=== PATIENT | male | born 1960 | race American Indian/Alaskan Native ===

== ENCOUNTER 2022-03-22 11:37 | Emergency (ER) | payer MEDICAID, OTHER ==
[~2022-03-22] VITALS: Ht 175.3 cm; Wt 108.9 kg
[2022-03-22] MEDS ORDERED: SPIRONOLACTONE25 MG PO (12:01)
[2022-03-22] MEDS ORDERED: ZESTRIL20 MG PO (12:02)
[2022-03-22] MEDS ORDERED: NEURONTIN400 MG PO (13:02)
[2022-03-22] MEDS ORDERED: LIDODERM1 EACH TOP (13:02)
[2022-03-22] MEDS ORDERED: NAPROSYN500 MG PO (13:02)
== END 2022-03-22 19:15 | disposition home or self-care (01) ==
LOC: ED 11:37
DX: M54.42 Lumbago with sciatica, left side (principal); I10 Essential (primary) hypertension; Z79.899 Other long term (current) drug therapy
CPT/HCPCS: 99283

== ENCOUNTER 2023-12-29 14:52 | Emergency (ER) | payer MEDICAID, OTHER ==
[~2023-12-29] VITALS: Ht 175.3 cm; Wt 97.0 kg
[~2023-12-29 14:52] MED LIST: LIDODERM1 EACH TOP; NAPROSYN500 MG PO; NEURONTIN400 MG PO; SPIRONOLACTONE25 MG PO; ZESTRIL20 MG PO
[2023-12-29 15:04] LABS: BASOPHILS 0.5 % (0-2); EOSINOPHILS 4.5 % (0-6); HEMATOCRIT 42.6 % (35.0-50.0); HEMOGLOBIN 14.4 g/dL (12.0-18.0); LYMPHOCYTES 18.9 % (24-44); MCH 32.7 (27-36); MCHC 33.9 g/dl (30-36); MCV 96.5 fl (81-99); MONOCYTES 5.3 % (0-12); NEUTROPHILS 70.8 % (39-80); PLATELET COUNT 241 K/uL (140-440); RBC 4.42 M/ul (4.3-5.7); RDW 13.1 (10.5-15.0)
[2023-12-29] MEDS ORDERED: CYCLOBENZAPRINE HCL 10 MG TAB PO ONE (15:15)
[2023-12-29 15:20] LABS: ALBUMIN 3.5 g/dL (3.4-5.0); ALBUMIN/GLOBULIN RATIO 0.8 (1.1-2.4); BILIRUBIN, TOTAL 0.4 ng/dL (0.2-1.0); BUN/CREATININE RATIO 13.04 (6.0-28.6); CALCIUM 9.1 mg/dL (8.5-10.1); CREATININE, SERUM 0.92 mg/dL (0.70-1.30); MAGNESIUM 2.2 mg/dL (1.8-2.4); PROTEIN, TOTAL 7.9 g/dL (6.4-8.2)
[2023-12-29 16:44] VITALS: BP 125/72
--- NOTE | 2023-12-29 21:50 | EKG ---
[facility] [address] [place] [address] Signed Sinus bradycardia Inferior infarct , age undetermined Abnormal ECG No previous ECGs available Confirmed by Leticia Heath MD () on 12/29/2023 9:50:16 PM Electronically Signed By: LETICIA HEATH MD 12/29/232149 PATIENT NAME: MAGDY TERRELL Electrocardiogram DATE OF : 58 PHYSICIAN: LETICIA HEATH MD REPORT #: [id number] REPORT IS CONFIDENTIAL AND NOT TO BE RELEASED WITHOUT AUTHORIZATION
== END 2023-12-29 16:45 | disposition home or self-care (01) ==
LOC: ED 14:52
PROVIDERS: Emergency Medicine
DX: R00.1 Bradycardia, unspecified (principal); I10 Essential (primary) hypertension; Z79.1 Long term (current) use of non-steroidal anti-inflammatories (NSAID); Z79.899 Other long term (current) drug therapy
CPT/HCPCS: 36415; 80053; 83735; 84484; 85025; 93005; 93010; 99284